=== PATIENT | female | born 1955 | race Caucasian/White ===

== ENCOUNTER → 2023-05-01 | Outpatient (CLI) | payer MEDICARE, OTHER ==
--- NOTE | 2023-05-01 14:33 | Diagnostic Imaging Report ---
PROCEDURE: MRI right joint lower extremity without contrast. TECHNIQUE: Multiplanar, multisequence non contrast-enhanced MRI of the right lower extremity was accomplished. INDICATION: Chronic pain. EXAMINATION: Right knee MRI without contrast 05/01/2023 FINDINGS: The extensor mechanism is intact. Degenerative signal seen diffusely throughout the ACL and PCL with partial tears not excluded. There is no discontinuity of either ligament. The MCL is thickened likely due to an old injury. Mild surrounding edema may suggest an MCL sprain correlate with symptoms. The lateral collateral ligamentous complex is intact. The biceps femoris tendon is thickened likely due to an old injury as well. Similar findings seen along portions of the biceps femoris tendon which is intact. There is a degenerative type tear diffusely throughout the anterior horn of the lateral meniscus. A horizontal oblique tear within the posterior horn of the lateral meniscus is also suspected. A multidirectional degenerative type tear extends throughout the entire posterior horn and portions of the body of the medial meniscus. There is marked/near complete loss of cartilage in the medial compartment with associated spurring and subchondral edema. Mild loss of cartilage is seen throughout the lateral compartment with spurring present. There is moderate loss of cartilage over the patella with marked narrowing along the lateral aspect of the patellofemoral joint. A mild lateral patellar tilt is also present. There is a moderate joint effusion. Multiple cystic collections posterior to the knee consistent with ganglia. There is a small Henson cyst. There is a small lobulated cystic collection immediately abutting the inferior border of the anterior horn of the medial meniscus. This could represent a para meniscal cyst. There are tiny loose bodies throughout the joint. IMPRESSION: 1. 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 2. Diffuse multidirectional tear which involves the entire medial meniscus with an adjacent possible para meniscal cyst noted. 3. Tear of the anterior horn and posterior horn of the lateral meniscus. 4. Possible MCL sprain with remaining ligaments and tendons intact other than just degenerative signal versus partial tears of the ACL and PCL. No discontinuity. Dictated by: Dictated on workstation # [id number]
== END ==
LOC: RAD 12:37
PROVIDERS: ATTEND Nurse Practitioner
DX: M17.11 Unilateral primary osteoarthritis, right knee (principal); S83.241A Other tear of medial meniscus, current injury, right knee, initial encounter; S83.281A Other tear of lateral meniscus, current injury, right knee, initial encounter
CPT/HCPCS: 73721